=== PATIENT | male | born 1965 | race Two or more races ===

== ENCOUNTER 2019-12-31 10:28 | Emergency (ER) | payer OTHER, MEDICAID ==
[~2019-12-31] VITALS: Ht 165.1 cm; Wt 79.4 kg
[2019-12-31] MEDS ORDERED: ACETAMINOPHEN 325 MG TAB PO ONE (11:00)
[2019-12-31] MEDS ORDERED: LIDOCAINE 1% HCL (LOCAL ANESTH.) INJ 20ML MDV IJ ONE (14:15)
[2019-12-31 14:27] VITALS: BP 122/79
[2019-12-31] MEDS ORDERED: TETANUS-DIPTH-ACEL PERTUSSIS 0.5ML SYRG IM ONE (14:45)
[2019-12-31] MEDS ORDERED: BACITRACIN TOP OINT 1 UD PKG TOP ONE (15:00)
== END 2019-12-31 15:35 | disposition home or self-care (01) ==
LOC: ER 10:28
DX: S61.210A Laceration without foreign body of right index finger without damage to nail, initial encounter (principal); W23.0XXA Caught, crushed, jammed, or pinched between moving objects, initial encounter; Y93.89 Activity, other specified; Y92.89 Other specified places as the place of occurrence of the external cause; Y99.8 Other external cause status
CPT/HCPCS: 12001; 73140; 90471; 90715; 99283; J2001

== ENCOUNTER 2020-01-02 20:02 | Emergency (ER) | payer OTHER, MEDICAID ==
[~2020-01-02] VITALS: Ht 165.1 cm; Wt 79.4 kg
[2020-01-02] MEDS ORDERED: SODIUM CHLORIDE 0.9% 1,000 ML IV ONE ×2 (20:30→22:15)
[2020-01-02] MEDS ORDERED: InsuLIN REG 1unit/0.01ml Soln (100units/ml) IV ONE (20:30)
[2020-01-02 21:20] LABS: Urine Bacteria NONE SEEN /hpf (None Seen); Urine Blood Negative /uL (Negative); Urine Specific Gravity 1.027 (1.001-1.035); Urine WBC <1 /hpf (0 - 3)
[2020-01-02 21:29] LABS: Basophils # (auto) 0 10 ^3/uL (0-0.2); Basophils % (auto) 0.4 % (0.0-2.0); Eosinophils # (auto) 0 10 ^3/uL (0-0.8); Hematocrit 47.9 % (41.0-53.0); Hemoglobin 16.1 g/dL (13.5-17.5); Lymphocytes # (auto) 1.4 10 ^3/uL (0.4-5.4); Lymphocytes % (auto) 13.6 % (10.0-50.0); Mean Corpuscular Hemoglobin 31.9 pg (28.0-32.0); Mean Corpuscular Hgb Conc. 33.7 g/dL (32.0-36.0); Mean Corpuscular Volume 94.6 fL (80.0-100.0); Monocytes # (auto) 0.6 10 ^3/uL (0-1.3); Monocytes % (auto) 5.5 % (0.0-12.0); Neutrophils # (auto) 8.1 10 ^3/uL (1.6-8.6); Neutrophils % (auto) 80.5 % (37.0-80.0); Nucleated Red Blood Cells % 0.1 %; Platelet Count (auto) 250 10^3/uL (140-450); Red Blood Cells 5.06 10^6/uL (4.5-5.90); Red Cell Distribution Width 12.6 % (11.8-14.3); White Blood Cell 10.1 10^3/uL (4.4-10.8)
[2020-01-02 21:46] LABS: Calcium 9.9 mg/dL (8.5-10.1); Potassium 4.8 mmol/L (3.5-5.1)
[2020-01-02 21:49] LABS: BUN/Creatinine Ratio 20.9; Bilirubin, Total 0.9 mg/dL (0.2-1.0); Total Protein 8.5 g/dL (6.4-8.2)
[2020-01-02] MEDS ORDERED: InsuLIN R (HUMAN) 100 UNITS in SODIUM CHL 0.9% 99 ML IV SCH (22:15)
[2020-01-02] MEDS ORDERED: DEXTROSE (50%) 50ML SYRG IV PRN (22:15)
[2020-01-02] MEDS: ACCU-CHEK COMFORT CURVE STRIP VI SCH (22:33)
[2020-01-03] MEDS: ACCU-CHEK COMFORT CURVE STRIP VI SCH ×3 (00:21→02:52)
[2020-01-03] MEDS ORDERED: SODIUM CHLORIDE 0.9% 1,000 ML IV ONE (03:15)
[2020-01-03 04:00] VITALS: BP 107/60
== END 2020-01-03 04:20 | disposition home or self-care (01) ==
LOC: ER 20:07
DX: E11.65 Type 2 diabetes mellitus with hyperglycemia (principal); R42 Dizziness and giddiness
CPT/HCPCS: 36415; 36600; 80053; 81001; 82010; 82805; 82962; 83036; 85025; 96361; 96365; 96366; 96375; 99285; J1815; J7030

== ENCOUNTER 2020-01-03 23:00 | Emergency (ER) | payer OTHER, MEDICAID ==
[~2020-01-03] VITALS: Ht 165.1 cm; Wt 77.1 kg
[2020-01-03] MEDS ORDERED: InsuLIN REG 1unit/0.01ml Soln (100units/ml) IV ONE (23:45)
[2020-01-03] MEDS ORDERED: SODIUM CHLORIDE 0.9% 1,000 ML IV ONE (23:45)
[2020-01-03 23:49] LABS: Basophils # (auto) 0 10 ^3/uL (0-0.2); Basophils % (auto) 0.2 % (0.0-2.0); Eosinophils # (auto) 0 10 ^3/uL (0-0.8); Eosinophils % (auto) 0.1 % (0.0-7.0); Hematocrit 44.4 % (41.0-53.0); Hemoglobin 15.2 g/dL (13.5-17.5); Lymphocytes # (auto) 2.3 10 ^3/uL (0.4-5.4); Lymphocytes % (auto) 22.7 % (10.0-50.0); Mean Corpuscular Hemoglobin 32.1 pg (28.0-32.0); Mean Corpuscular Hgb Conc. 34.3 g/dL (32.0-36.0); Mean Corpuscular Volume 93.5 fL (80.0-100.0); Monocytes # (auto) 0.6 10 ^3/uL (0-1.3); Neutrophils # (auto) 7.2 10 ^3/uL (1.6-8.6); Platelet Count (auto) 232 10^3/uL (140-450); Red Blood Cells 4.75 10^6/uL (4.5-5.90); Red Cell Distribution Width 12.7 % (11.8-14.3); White Blood Cell 10.1 10^3/uL (4.4-10.8)
[2020-01-03 23:49] LABS: Urine Bacteria NONE SEEN /hpf (None Seen); Urine Blood Negative /uL (Negative); Urine Specific Gravity 1.026 (1.001-1.035); Urine WBC <1 /hpf (0 - 3)
[2020-01-04 00:09] LABS: Albumin 3.5 g/dL (3.4-5.0); Anion Gap 8 (5-15); Blood Urea Nitrogen 24 mg/dL (7-18); Calcium 8.5 mg/dL (8.5-10.1); Carbon Dioxide 22 mmol/L (21-32); Chloride 100 mmol/L (98-107); Potassium 4.2 mmol/L (3.5-5.1); Sodium 130 mmol/L (136-145)
[2020-01-04 00:13] LABS: Alanine Aminotransferase 49 U/L (16-61); Aspartate Aminotransferase 15 U/L (15-37); BUN/Creatinine Ratio 21.2; Bilirubin, Total 0.6 mg/dL (0.2-1.0); GFR African American 87 mL/min; GFR Non-African American 72 mL/min; Total Protein 7.3 g/dL (6.4-8.2)
[2020-01-04 00:14] LABS: Glucose 604 mg/dL (74-106)
[2020-01-04 00:17] LABS: Alkaline Phosphatase 95 U/L (45-117)
[2020-01-04] MEDS ORDERED: SODIUM CHLORIDE 0.9% 1,000 ML IV ONE (02:30)
[2020-01-04 03:00] VITALS: BP 112/61
== END 2020-01-04 03:23 | disposition home or self-care (01) ==
LOC: ER 23:00
DX: E11.65 Type 2 diabetes mellitus with hyperglycemia (principal)
CPT/HCPCS: 36415; 80053; 81001; 82010; 82962; 84484; 85025; 93005; 96361; 96374; 99284; J1815; J7030